=== PATIENT | female | born 1985 | race African-American/Black ===

== ENCOUNTER 2017-05-09 08:40 | Emergency (ER) | payer OTHER, MEDICAID ==
[~2017-05-09 08:40] MED LIST: ACYC200C66 PO; AMOX400S3 PO; BUDE3CAP PO; CARA1TAB6 PO; CIMZ200K SQ; DEPO150I IM; DIFL150T PO; FERR325T PO; HYDR-3534 PO; LIAL1.2T PO; NYST100084 TOPICAL; OMEP20TA PO
[2017-05-09 08:42] VITALS: BP 116/70; PULSE 87; RESP 14; TEMP 98.7; O2SAT 99
[2017-05-09 09:00] VITALS: BP 114/70; PULSE 92; RESP 16; O2SAT 99
[2017-05-09] MEDS ORDERED: CLIN1CAP6 PO (09:10)
--- NOTE | 2017-05-09 09:10 | PD ---
HPI Chief Complaint: Skin Problem Time Seen by Provider: 08:54 Travel History International Travel<30 days: No Contact w/Intl Traveler<30days: No Traveled to known affect area: No History of Present Illness HPI 31-year-old female presents to the emergency department for evaluation abscess to her buttocks. Patient states that started 3 days ago. She denies any drainage from the eye. She does report history of abscesses. Patient's history of Crohn's disease. She is recently started on a new medication. She states that with her Crohn's disease, she is prone to abscesses. No fevers or chills. She has no other complaints. No chance of . PFSH Past Medical History Gastrointestinal Disorders: Yes ([place]OH[place]) ?: Not : 5 Para: 4 Miscarriage: 1 Past Surgical History Other Surgery: Yes ("SWEAT GLANDS REMOVED FROM LEFT AND RIGHT ARM") Social History Alcohol Use: No Tobacco Use: No Substance Use: No Allergies-Medications (Allergen,Severity, Reaction): Coded Allergies: penicillin G (Unverified Allergy, Severe, hives/lips swelling, 03/24/17) Reported Meds & Prescriptions Reported Meds & Active Scripts Active Clindamycin (Clindamycin HCl) 300 Mg Cap 300 Mg PO Q6H 10 Days Depo-Provera Inj (Medroxyprogesterone Inj) 150 Mg/Ml Inj 150 Mg IM Q90D Reported Cimzia (2 syringe) Kit Inj (Certolizumab Pegol Inj) 200 Mg/Ml Kit 400 Mg SQ Q30D Administer 2 syringes (400 mg) to separate sites. Lialda (Mesalamine) 1.2 Gm Tabdr 2.4 Gm PO BID Take with a meal. Lortab (Hydrocodone-Acetaminophen) 7.5-325 Mg Tab 1 Tab PO Q4H PRN Review of Systems Except as stated in HPI: all other systems reviewed are Neg Physical Exam Narrative GENERAL: Well-nourished, well-developed female patient, ambulatory. Afebrile. SKIN: Focused skin assessment warm/dry. Patient has 2 cm fluctuant abscess to the right inner buttock. This does not extend to the anus. There is no tenderness over the anus. HEAD: Normocephalic. Atraumatic. EYES: No scleral icterus. No injection or drainage. NECK: Supple, trachea midline. No JVD or lymphadenopathy. CARDIOVASCULAR: Regular rate and rhythm without murmurs, gallops, or rubs. RESPIRATORY: Breath sounds equal bilaterally. No accessory muscle use. Lungs sounds are clear to auscultation. GASTROINTESTINAL: Abdomen soft, non-tender, nondistended. MUSCULOSKELETAL: No cyanosis, or edema. BACK: Nontender without obvious deformity. No CVA tenderness. Data Data Last Documented VS Vital Signs Date Time Temp Pulse Resp B/P (MAP) Pulse Ox O2 Delivery O2 Flow Rate FiO2 05/09/17 09:00 92 16 114/70 (85) 99 Room Air 05/09/17 08:42 98.7 Orders Orders Lidocaine 1% Inj (50 Ml) (Xylocaine 1% I (05/09/17 09:15) Wound Culture And Gram Stain (05/09/17 09:06) Clindamycin (Cleocin) (05/09/17 09:30) MDM Medical Decision Making Medical Screen Exam Complete: Yes Emergency Medical Condition: Yes Medical Record Reviewed: Yes Differential Diagnosis Abscess versus cellulitis versus cyst Narrative Course 31-year-old female presents to the emergency department for evaluation of an abscess to her buttock for 3 days. Physical exam reveals 2 cm fluctuant abscess. She gives verbal consent for incision and drainage. Patient will be discharged prescription for clindamycin. She verbalizes agreement and understanding. The patient was discharged in stable condition with instructions, including return instructions and follow up instructions. Procedures Procedure Narrative INCISION AND DRAINAGE OF ABSCESS: The area was prepped and was sterilely draped. A subcutaneous wheal of 1% Xylocaine with a total number 3 mL was used to anesthetize the area. The area was properly anesthetized. A number 11 scalpel was used to make a 1 -cm incision across the area of the abscess. Cultures were obtained. The abscess was drained an irrigated with normal saline. Sterile dressing applied. Diagnosis Primary Impression: Abscess of buttock, right Referrals: Primary Care Physician call for appointment Patient Instructions: Abscess (ED), Abscess Incision and Drainage (DC), General Instructions Additional Instructions: Clean twice daily with soap and water and apply [id number] antibiotic ointment. Take antibiotic as directed until gone. Follow-up with your primary care physician. Return to the emergency department for any acute worsening of symptoms. Med/Other Pt SpecificInfo: Prescription(s) given Scripts Clindamycin (Clindamycin) 300 Mg Cap 300 MG PO Q6H for Infection for 10 Days, #40 CAP 0 Refills Prov: Ann Ramirez 05/09/17 Disposition: 01 DISCHARGE HOME Condition: Stable Ann Ramirez May 09, 2017 09:10
[2017-05-09] MEDS ORDERED: LIDOCAINE HCL 1% 50 ML VIAL INFIL ONE (09:15)
[2017-05-09] MEDS ORDERED: CLINDAMYCIN 150 MG CAP PO ONE (09:30)
== END 2017-05-09 09:40 | disposition home or self-care (01) ==
LOC: NEPD 08:40
DX: L02.31 Cutaneous abscess of buttock (principal)
CPT/HCPCS: 10060; 86403; 87070

== ENCOUNTER 2017-05-16 18:38 | Emergency (ER) | payer OTHER, MEDICAID ==
[~2017-05-16] VITALS: Ht 157.5 cm; Wt 75.0 kg
[~2017-05-16 18:38] MED LIST changes: -ACYC200C66 PO; -AMOX400S3 PO; -BUDE3CAP PO; -CARA1TAB6 PO; +CLIN1CAP6 PO; -DIFL150T PO; -FERR325T PO; -NYST100084 TOPICAL; -OMEP20TA PO
[2017-05-16 18:41] VITALS: BP 122/74; PULSE 86; RESP 12; TEMP 98.3; O2SAT 99
--- NOTE | 2017-05-17 12:30 | EKG ---
Date Performed: 05/16/2017 Time Performed: 19:17:21 PTAGE: 31 years EKG: Sinus rhythm NONSPECIFIC T-WAVE ABNORMALITY BORDERLINE ECG NO PREVIOUS TRACING DOCTOR: Roel Fried Interpretating Date/Time 05/17/2017 12:27:27
== END 2017-05-16 19:26 | disposition left against medical advice (07) ==
LOC: NED 18:38
DX: R94.31 Abnormal electrocardiogram [ECG] [EKG] (principal)
CPT/HCPCS: 93005; 99281